=== PATIENT | female | born 1965 | race Asian ===

== ENCOUNTER → 2018-11-19 | Day surgery (SDC) | payer BC ==
[~2018-11-19] MED LIST: AMOX500C PO; IV RINGERS,LACTATED 1000ML 1,000 ML IV SCH; LIDOCAINE 1% PF 2 ML VIAL. ID PRN; MIDAZOLAM HCL/PF 2 MG/2 ML VIAL. IV PRN; PROPOFOL 20 ML IV ONE; fentaNYL PF VIAL 100 MCG/2 ML VIAL IV PRN
[2018-11-19 08:12] VITALS: BP 102/59
== END ==
LOC: SURG 06:23
PROVIDERS: ATTEND Internal Medicine Gastroenterology
DX: K22.2 Esophageal obstruction (principal); Z72.0 Tobacco use; Z98.51 Tubal ligation status
CPT/HCPCS: 43235; 43450; J2704